=== PATIENT | female | born 1995 | race Caucasian/White ===

== ENCOUNTER 2017-01-09 03:27 | Emergency (ER) | payer MEDICAID, OTHER ==
[~2017-01-09] VITALS: Ht 160 cm; Wt 50.0 kg
[2017-01-09 03:31] VITALS: Ht 160 cm; Wt 50.0 kg
[2017-01-09] MEDS ORDERED: ALBUTEROL 0.5% (NEB) 2.5 MG/0.5 ML AMP INH STA (03:52)
[2017-01-09] MEDS ORDERED: HYDROCODONE/APAP (5/325) TAB PO ONE (04:00)
[2017-01-09] MEDS ORDERED: DIPHTH/TET/ACEL PERTUSS (ADULT) 0.5 ML VIAL IM* ONE (04:00)
--- NOTE | 2017-01-09 04:30 | RADRPT ---
PROCEDURE: Right hand x-ray CLINICAL INDICATION: Laceration. Evaluate for foreign body. TECHNIQUE: AP, lateral and oblique views were obtained. COMPARISON: None FINDINGS: No fracture or dislocation is seen. A marker indicates the area of laceration along the medial dista l fourth finger. There is a subtle 2 by and 1 mm density overlying the soft tissues along the medial aspect of the fourth middle phalanx which is seen only on the AP view. This is less dense than expe cted for a glass foreign body but other debris cannot be excluded. This could be due to overlapping soft tissue injury as well. No soft tissue gas is seen. IMPRESSION: 2 x 1 mm density overlying the soft tissues medial to the distal aspect of the fourth middle phalanx . RPTAT: [facility] Physician Dominic Date Time Electronically viewed and signed by Karon Fischer Physician on 01/09/2017 04:30 LE/
[2017-01-09] MEDS ORDERED: LIDOCAINE 1% (MDV) 20 ML INJ SC ONE (05:00)
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
[2017-01-09 06:03] VITALS: BP 118/88; PULSE 67; RESP 18; TEMP 98
== END 2017-01-09 06:04 | disposition home or self-care (01) ==
LOC: E/R 03:27
DX: S61.214A Laceration without foreign body of right ring finger without damage to nail, initial encounter (principal); W25.XXXA Contact with sharp glass, initial encounter; Y92.9 Unspecified place or not applicable; Z23 Encounter for immunization
CPT/HCPCS: 12001; 73130; 90471; 90715; 94644; Z7502; Z7610

== ENCOUNTER 2017-01-14 21:38 | Emergency (ER) | payer SELFPAY ==
[~2017-01-14] VITALS: Ht 160 cm; Wt 44.0 kg
[2017-01-14 21:40] VITALS: Ht 160 cm; Wt 44.0 kg
== END 2017-01-15 04:31 | disposition left against medical advice (07) ==
LOC: FTE 21:38
DX: Z53.21 Procedure and treatment not carried out due to patient leaving prior to being seen by health care provider (principal)